=== PATIENT | male | born 1980 | race Caucasian/White ===

== ENCOUNTER 2022-02-09 23:17 | Emergency (ER) | payer SELFPAY ==
[~2022-02-09] VITALS: Ht 175.3 cm; Wt 72.7 kg
--- NOTE | 2022-02-09 23:42 | PHYS DOC ---
Past Medical History Past Medical History: Anxiety, Other Additional Past Medical Histor: SALAVARY INFECTION ( PER PATIENT) Past Surgical History: Other Additional Past Surgical Histo: HERNIA REPAIR Smoking Status: Current Every Day Smoker Alcohol Use: Occasionally Drug Use: Cocaine, Marijuana General Adult EDM: Chief Complaint: MEDICAL CLEARANCE HPI: HPI: Patient is a 41-year-old male who presents to the emergency department in PD custody for medical clearance. Patient was tackled by PD after running from the director of blood approximately 1 hour prior to ER arrival. He was evaluated by EMS on scene but declined transport. Patient then started complaining of thoracic back pain, left ankle and left knee pain. He rates his pain 6 out of 10. No treatment prior to arrival. Patient denies hitting his head, loss of consciousness, loss of bowel or bladder, saddle anesthesias. Review of Systems: Review of Systems: HENT: See HPI : See HPI Musculoskeletal: See HPI Integument: Reports abrasion to left knee and ankle Neurologic: See HPI Heart Score: C/O Chest Pain: N/A Risk Factors: Risk Factors: DM, Current or recent (<one month) smoker, HTN, HLP, family history of CAD, obesity. Risk Scores: Score 0 - 3: 2.5% MACE over next 6 weeks - Discharge Home Score 4 - 6: 20.3% MACE over next 6 weeks - Admit for Clinical Observation Score 7 - 10: 72.7% MACE over next 6 weeks - Early Invasive Strategies Allergies: Allergies: Allergies Coded Allergies Type Severity Reaction Last Updated Verified codeine Allergy Intermediate NAUSEA 12/26/14 No vancomycin Allergy Mild RASH 05/30/18 Yes Physical Exam: PE: Constitutional: Well developed, well nourished, no acute distress, non-toxic appearance. [] HENT: Normocephalic, atraumatic, bilateral external ears normal, oropharynx moist, no oral exudates, nose normal. [] Eyes: PERRL, EOMI, conjunctiva normal, no discharge. [] Neck: Normal range of motion, no bony spinal tenderness, no step-offs or deformities, supple, no stridor. [] Cardiovascular: Normal peripheral perfusion Lungs & Thorax: Normal work of breathing, no tachypnea Abdomen: Soft and flat Skin: Warm, dry, no erythema, no rash. [] Back: No bony spinal tenderness, right-sided thoracic paraspinal tenderness with palpation, normal range of motion Extremities: No tenderness, no cyanosis, no clubbing, ROM intact, no edema. [] Left knee: Pain with palpation to posterior aspect of left knee, no obvious d eformity, no joint laxity, no crepitus, small abrasion noted to anterior aspect of left knee, neuro intact, range of motion intact. Left ankle: Small abrasion noted to left ankle, no crepitus, no swelling, no obvious deformity, range of motion intact, neuro intact, patient able to bear weight and ambulate. Neurologic: Alert and oriented X 3, normal motor function, normal sensory function, no focal deficits noted. [] Psychologic: Affect normal, judgement normal, mood normal. [] EKG: EKG: [] Radiology/Procedures: Radiology/Procedures: []PROCEDURE: KNEE LEFT 3V Left knee x-rays 3 views HISTORY: Left knee pain. FINDINGS: No fracture. No dislocation. No arthritic change. No bone lesion. Soft tissues are normal. IMPRESSION: Normal exam. Left ankle x-rays 3 views HISTORY: Ankle pain. FINDINGS: There is an old healed fracture deformity of the distal fibula metadiaphysis. There is mild lateral ankle soft tissue swelling. No acute fracture. No dislocation. No talus osteochondral lesion. IMPRESSION: No acute osseous injury. See above. Electronically signed by: Lauren Brooks MD (02/10/2022 12:30 AM) [facility] [place] DICTATED and SIGNED BY: LAUREN BROOKS MD DATE: 02/10/22 [id number] PROCEDURE: CT THORACIC SPINE WO CONTRAST CT lumbar spine without contrast. PQRS statement: CT scans at this facility use dose reduction including either automated exposure control, iterative reconstructions, and /or weight based radiation dosing via mA and kV modification when appropriate to reduce radiation dose to as low as reasonably achievable. HISTORY: Tackled by police department. Back pain. FINDINGS: Mild levoconvex lumbar scoliosis. Lumbar vertebral body height and alignment. No fracture. No spondylolysis defect. No bone lesion. There are disc bulges contribute to mild spinal canal stenosis and mild/moderate neural foraminal stenoses at L3-4 and L4-5 and L5-S1. Paraspinal tissues demonstrate calcified aorta and iliac arteries. There is a 7 mm oblong left renal upper pole calculus. IMPRESSION: No acute osseous injury of the lumbar spine. Lumbar disc disease. Lumbar scoliosis. Electronically signed by: Lauren Brooks MD (02/10/2022 12:25 AM) [facility] [place] DICTATED and SIGNED BY: LAUREN BROOKS MD DATE: 02/10/22 [id number] Course & Med Decision Making: Course & Med Decision Making Pertinent Labs and Imaging studies reviewed. (See chart for details) [] Patient presents to the emergency department in PD custody for medical clearance. Patient is reporting thoracic back pain, left knee and left ankle pain. Imaging was performed that showed no acute findings. Patient advised to apply ice and take Tylenol and ibuprofen. Patient has no cauda equina symptoms. Patient is ambulatory with a steady gait. I discussed with patient all findings and diagnostic testing as well as the need to follow-up with PCP for further evaluation and treatment or return to the ER if any new or worsening symptoms. Strict return precautions were also discussed at length. Patient voiced understanding and agreement with the plan. Patient is hemodynamically stable at the time of disposition. Danielon Disclaimer: Shirley Disclaimer: This electronic medical record was generated, in whole or in part, using a voice recognition dictation system. Departure Departure Impression: Primary Impression: Medical clearance for incarceration Disposition: HOME / SELF CARE / HOMELESS Condition: GOOD Referrals: NO PCP (PCP) Patient Instructions: Contusion Additional Instructions: You are seen in the emergency department for ankle, knee and back pain. Imaging was performed that showed no acute findings. Take Tylenol and ibuprofen for pain you can also apply ice. Follow-up with your primary care provider on Friday regarding your ER visit. Return to the emergency department if you develop worsening of your pain, inability to bear weight or walk, loss of bowel or bladder, numbness or tingling in your groin or down your legs. EMERGENCY DEPARTMENT GENERAL DISCHARGE INSTRUCTIONS Thank you for coming to [facility] Emergency Department (ED) today and trusting us with you care. We trust that you had a positive experience in our Emergency Department. If you wish to speak to the department management, you may call the Director at [phone]. YOUR FOLLOW UP INSTRUCTIONS ARE FOLLOWS: 1. Do you have a private Doctor? If you do not have a private doctor, please ask for a resource list of physicians or clinics that may be able to assist you with follow up care. 2. The Emergency Physicain has interpreted your x-rays. The X-Ray specialist will also review them. If there is a change in the findings, you will be notified in 48 hours when at all possible. 3. A lab test or culture has been done, your results will be reviewed and you will be notified if you need a change in treatment. ADDITIONAL INSTRUCTIONS AND INFORMATION: 1. Your care today has been supervised by a physician who is specially trained in emergency care. Many problems require more than one evaluation for a complete diagnosis and treatment. We recommend that you schedule your follow up appointment as recommended to ensure complete treatment of you illness or injury. If you are unable to obtain follow up care and continue to have a problem, or if your condition worsens, we recommend that you return to the ED. 2. We are not able to safely determine your condition over the phone nor are we able to give sound medical advice over the phone. For these safety reasons, if you call for medical advice we will ask you to come to the ED for further evaluation. 3. If you have any questions regarding these discharge instructions please call the ED at [phone]. SAFETY INFORMATION: In the interest of safety, wellness, and injury prevention; we encourage you to wear your sealbelt, if you smoke; quite smoking, and we encourage family to use a protective helmet for bicycling and other sporting events that present an increased risk for head injury. IF YOUR SYMPTOMS WORSEN OR NEW SYMPTOMS DEVELOP, OR YOU HAVE CONCERNS ABOUT YOUR CONDITION; OR IF YOUR CONDITION WORSENS WHILE YOU ARE WAITING FOR YOUR FOLLOW UP APPOINTME NT; EITHER CONTACT YOUR PRIMARY CARE DOCTOR, THE PHYSICIAN WHOSE NAME AND NUMBER YOU WERE GIVEN, OR RETURN TO THE ED IMMEDIATELY. AMALIA FLORES APRN Feb 09, 2022 23:42
--- NOTE | 2022-02-10 00:28 | RAD ---
CT lumbar spine without contrast. PQRS statement: CT scans at this facility use dose reduction including either automated exposure cont rol, iterative reconstructions, and /or weight based radiation dosing via mA and kV modification when appropriate to reduce radiation dose to as low as reasonably achievable. HISTORY: Tackled by police department. Back pain. FINDINGS: Mild levoconvex lumbar scoliosis. Lumbar vertebral body height and alignment. No fracture. No spondylolysis defect. No bone lesion. There are disc bulges contribute to mild spinal canal stenos is and mild/moderate neural foraminal stenoses at L3-4 and L4-5 and L5-S1. Paraspinal tissues demonst rate calcified aorta and iliac arteries. There is a 7 mm oblong left renal upper pole calculus. IMPRESSION: No acute osseous injury of the lumbar spine. Lumbar disc disease. Lumbar scoliosis. Electronically signed by: Ja Brooks MD (02/10/2022 12:25 AM) [facility]
--- NOTE | 2022-02-10 00:33 | RAD ---
Left knee x-rays 3 views HISTORY: Left knee pain. FINDINGS: No fracture. No dislocation. No arthritic change. No bone lesion. Soft tissues are normal. IMPRESSION: Normal exam. Left ankle x-rays 3 views HISTORY: Ankle pain. FINDINGS: There is an old healed fracture deformity of the distal fibula metadiaphysis. There is mild lateral ankle soft tissue swelling. No acute fracture. No dislocation. No talus osteochondral lesion . IMPRESSION: No acute osseous injury. See above. Electronically signed by: Ja Brooks MD (02/10/2022 12:30 AM) [facility]
[2022-02-10 01:13] VITALS: BP 102/78
== END 2022-02-10 01:20 | disposition home or self-care (01) ==
LOC: ER 23:17
DX: S80.212A Abrasion, left knee, initial encounter (principal); S90.512A Abrasion, left ankle, initial encounter; M54.6 Pain in thoracic spine; Z88.1 Allergy status to other antibiotic agents; Z88.5 Allergy status to narcotic agent; X58.XXXA Exposure to other specified factors, initial encounter; Y93.89 Activity, other specified; Y92.89 Other specified places as the place of occurrence of the external cause; Y99.8 Other external cause status
CPT/HCPCS: 72128; 73562; 73610; 99284-25